=== PATIENT | female | born 1980 | race Caucasian/White ===

== ENCOUNTER 2018-02-05 07:14 | Outpatient (CLI) | payer OTHER ==
[~2018-02-05 07:14] MED LIST: SYNTHROID50 MCG; SYNTHROID50 MCG PO; ZYRTEC10 M3 PO
== END 2018-02-05 07:23 | disposition home or self-care (01) ==
LOC: SONOGRAMA 07:14
DX: E04.2 Nontoxic multinodular goiter (principal)

== ENCOUNTER → 2019-01-07 | Emergency (ER) | payer OTHER ==
[~2019-01-07] VITALS: Ht 167.6 cm; Wt 104.3 kg
[~2019-01-07] MED LIST changes: +ALLEGRA-D 12 H1 EACH PO; +OSEL75CA PO; +ZYNCOF 20-400120 ML PO
== END | disposition home or self-care (01) ==
LOC: ER 22:31
DX: B34.9 Viral infection, unspecified (principal); R50.9 Fever, unspecified

== ENCOUNTER 2024-05-05 12:02 | Emergency (ER) | payer OTHER ==
[~2024-05-05] VITALS: Ht 167.6 cm; Wt 106.6 kg
[2024-05-05] MEDS ORDERED: FAMOTIDINE/PF 20 MG/2 ML VIAL IV PUSH STA (13:53)
[2024-05-05] MEDS ORDERED: ONDANSETRON HCL 2 MG/ML VIAL IV STA (13:54)
[2024-05-05 14:27] LABS: HEMATOCRIT 36.8 % (36.0-45.00); HEMOGLOBIN 12.3 g/dL (12.0-15.00); MEAN CELL VOLUME 88.1 fL (80.00-100.00); MEAN CORPUSCULAR HEMOGLOBIN 29.4 pg (27.00-32.0); MEAN CORPUSCULAR HGB CONC 33.3 g/dl (32.0-36.0); PLATELET COUNT 283 K/uL (150-450); RED BLOOD COUNT 4.18 M/uL (4.00-6.00); RED CELL DISTRIBUTION WIDTH 13.8 % (11.5-14.5)
[2024-05-05 14:56] LABS: ALBUMIN 3.5 gm/dL (3.4-5.0); BILIRUBIN TOTAL 0.36 mg/dL (0.3-1.2); CALCIUM 8.8 mg/dL (8.5-10.1); CREATININE SERUM 0.64 mg/dL (0.55-1.02); GFR 100.35; POTASSIUM 3.88 mEq/L (3.5-5.1); TOTAL PROTEIN 7.5 gm/dL (6.4-8.2)
[2024-05-05] MEDS ORDERED: KETOROLAC TROMETHAMINE 30 MG VIAL IM STA (15:16)
[2024-05-05] MEDS ORDERED: ORPHENADRINE CITRATE 30 MG/ML AMPUL IM STA (15:16)
== END 2024-05-05 16:31 | disposition home or self-care (01) ==
LOC: ER 12:04
PROVIDERS: General Practice
DX: R07.89 Other chest pain (principal)